=== PATIENT | female | born 1955 | race Caucasian/White ===

== ENCOUNTER 2020-02-22 10:02 | Emergency (ER) | payer MEDICAID ==
[~2020-02-22] VITALS: Ht 144.8 cm; Wt 61.7 kg
[2020-02-22 10:12] VITALS: BP 149/104
--- NOTE | 2020-02-22 10:17 | NUR ---
TO ER BED 10,C/O NASAL CONGESTION DUE TO POLLENS X 10 DAYS,AWAITING MD BANERJEE
--- NOTE | 2020-02-22 10:18 | NUR ---
DR MORAES AT BEDSIDE
--- NOTE | 2020-02-22 10:44 | NUR ---
Patient eloped from facility. ER MD notified.
== END 2020-02-22 10:45 | disposition left against medical advice (07) ==
LOC: ER 10:04
DX: R06.02 Shortness of breath (principal)

== ENCOUNTER 2020-02-23 15:32 | Emergency (ER) | payer MEDICAID ==
[~2020-02-23] VITALS: Ht 144.8 cm; Wt 63.0 kg
--- NOTE | 2020-02-23 15:48 | NUR ---
pt to er bed 02 accompanied daughter c/o shortness of breath and generalized weakness for couple of days now. pt and daughter was at ED yesterday but was belligerent and was refusing treatment plan. pt was placed on monitor, tachycardic noted. awaiting md norwood.
--- NOTE | 2020-02-23 15:55 | NUR ---
dr harkins at bedside for eval.
[2020-02-23] MEDS ORDERED: LORAZEPAM 0.5 MG TABLET PO ONE (16:00)
[2020-02-23] MEDS ORDERED: LORAZEPAM 0.5 MG TABLET ONE (16:01)
--- NOTE | 2020-02-23 16:45 | NUR ---
dr harkins back at bedside talking to patient about care plan. pt's daughter and the patient being rude to dr harkins.
[2020-02-23 17:21] VITALS: BP 140/81
--- NOTE | 2020-02-23 17:22 | NUR ---
Patient discharged to home in stable condition. Written and verbal after care instructions given. Patient verbalizes understanding of instruction.
== END 2020-02-23 17:22 | disposition home or self-care (01) ==
LOC: ER 15:39
DX: J12.9 Viral pneumonia, unspecified (principal); Z20.828 Contact with and (suspected) exposure to other viral communicable diseases; Z86.12 Personal history of poliomyelitis; J98.4 Other disorders of lung
CPT/HCPCS: 71045; 99284; U0003